=== PATIENT | female | born 1970 | race Caucasian/White ===

== ENCOUNTER → 2016-11-11 | Outpatient (CLI) | payer OTHER ==
[2014-05-23 21:35] VITALS: BP 121/68
--- NOTE | 2016-11-11 15:59 | KCIC ---
PROCEDURE Pelvic and transvaginal ultrasound HISTORY Left pelvic pain COMPARISON None FINDINGS Multiple transabdominal sonographic images of the pelvis are submitted. Pelvic structures are not well visualized. Transvaginal ultrasound: Multiple transvaginal sonographic images of the pelvis are submitted. Uterus measured 9 x 5.3 x 5.7 centimeters. Endometrium measured 0.3 centimeters. Right ovary measured 2.4 x 1.3 x 1.9 centimeters. Left ovary measured 2.2 x 1.6 x 2.1 centimeters. There is normal low resistance vascularity of the ovaries bilaterally. No significant free fluid is demonstrated. There is a somewhat heterogeneous mass of the uterus on the left near the fundus up to 3 x 2.2 x 1.7 centimeters, centered in myometrium although extent near the serosal surface. There is another mass posteriorly in the myometrium of the uterus up to 2.1 x 1.9 x 1.9 centimeters. IMPRESSION 1. There are 2 uterine masses, likely fibroids. 2. No other abnormality is demonstrated. Electronically signed by: Maury Sears MD (Nov 11, 2016 15:57:32)
== END | disposition home or self-care (01) ==
LOC: KCIC US 14:15
PROVIDERS: ATTEND Family Medicine
DX: N85.9 Noninflammatory disorder of uterus, unspecified (principal)
CPT/HCPCS: 76830; 76856

== ENCOUNTER → 2018-08-21 | Outpatient (CLI) | payer OTHER ==
[2014-05-23 21:35] VITALS: BP 121/68
--- NOTE | 2018-08-21 12:06 | KCIC ---
Bilateral digital screening mammograms: Reason for examination: Routine screening. Comparison is made to previous studies dated 07/14/2015 and 12/04/2014. Interpretation was made with the benefit of CAD. The skin and nipples show no abnormalities. No abnormal axillary lymph nodes are seen. The breast parenchyma is extremely dense. (Breast density: Category D.) There are no dominant masses, suspicious calcifications or architectural distortion. A few scattered punctate calcifications are seen. Impression: No evidence of malignancy. Extremely dense parenchyma and ultrasound should be considered for follow-up of the solid nodule seen on previous ultrasound examination. Your patient's mammogram demonstrates that she has dense breast tissue (breast density category C or D), which could hide abnormalities, and if she has other risk factors for breast cancer that have been identified, she might benefit from supplemental screening tests that may be suggested by you as her ordering physician. Dense breast tissue, in and of itself, is a relatively common condition. Therefore, this information is not provided to cause undue concern, but rather to raise your awareness and to promote discussion with your patient regarding the presence of other risk factors, in addition to dense breast tissue. Your patient's mammography results will be sent to her. BI-RAD Category 0: Incomplete. Needs additional imaging evaluation. "Our facility is accredited by the [employer] Mammography Program." This patient's information has been entered into a reminder system for the patient to be notified with the results of her examination and a target date for the next mammogram. Electronically signed by: Sharda Bain MD (08/21/2018 12:02 PM) [facility]
== END | disposition home or self-care (01) ==
LOC: KCIC MAMMO 11:20
PROVIDERS: ATTEND Family Medicine
DX: Z12.31 Encounter for screening mammogram for malignant neoplasm of breast (principal)
CPT/HCPCS: 77067

== ENCOUNTER → 2018-08-31 | Outpatient (CLI) | payer OTHER ==
[2014-05-23 21:35] VITALS: BP 121/68
--- NOTE | 2018-08-31 10:12 | KCIC ---
Left breast diagnostic ultrasound HISTORY: Multiple asymmetric tissue densities seen in the August 21, 2018 mammogram Sonographic examination of the left breast was performed and multiple static images obtained COMPARISON: July 14, 2015 There is a solid mass in the 12:00 left breast 2 cm from the nipple that measures 1.1 x 1.0 x 0.7 cm. It is microlobulated but nonshadowing and has no detectable blood flow. There are numerous cystic appearing lesions scattered throughout the breast which appear similar to the prior study many of these are septated have internal echoes if you have wall thickening versus mural nodules. There are normal-appearing lymph nodes in the left axilla. IMPRESSION: 1. Recommend biopsy of the suspicious mass 12:00 left breast 2 cm from the nipple. 2. Numerous additional lesions in the breast appear benign. These can be followed by six-month follow-up ultrasound. If the tissue specimen comes back positive for cancer the patient should have a right breast ultrasound as well as bilateral breast MRI due to significant breast tissue density on mammogram. These results were given to the patient in person by the international logistics coordinator upon completion of the examination. The patient and the clinical staff will be contacted by the radiology staff for further instructions. BI-RADS Category 5: Highly suggestive of malignancy. Electronically signed by: Ryder Ortega III, MD (08/31/2018 10:08 AM) [id number]
== END | disposition home or self-care (01) ==
LOC: KCIC US 08:48
PROVIDERS: ATTEND Family Medicine
DX: N63.21 Unspecified lump in the left breast, upper outer quadrant (principal)
CPT/HCPCS: 76641

== ENCOUNTER → 2018-10-10 | Outpatient (CLI) | payer OTHER ==
[2014-05-23 21:35] VITALS: BP 121/68
[~2018-10-10] MED LIST: LIDOCAINE 1%/EPI 1:100,000 20 ML VIAL. INJ ONE; LIDOCAINE 2%/EPI 1:100,000 20 ML VIAL. IJ ONE
--- NOTE | 2018-10-11 18:06 | PATHOLOGY ---
[facility] Accession Number: [id number] . 01 Material submitted: . LEFT BREAST MASS, 12:00, 2CMFN . 01 Clinical history: . Left breast mass 1.1 cm . 02 Diagnosis: Breast tissue, left breast mass 12:00 needle biopsies: - Fibroadenoma. (JPM:lisa; 10/11/2018) MBR/10/11/2018 . 02 Comment: There is no evidence of malignancy. (JPM:lisa; 10/10/2018) . 02 Electronically signed: . Suraj Deleon MD, Pathologist NPI- [id number] . 01 Gross description: . Received in formalin labeled "Eleanor Aaron, left breast 12:00 2 cm FN," are multiple needle cores of yellow-jimenez fibrofatty tissue measuring 2.1 x 0.8 x 0.2 cm in aggregate dimensions. The tissue is submitted in its entirety in cassette A1 through A3. The cold ischemic time is 4 minutes. The total formalin fixation time is 14 hours and 32 minutes. (TSD; 10/10/2018) TOB/TOB . 02 Pathologist provided ICD-10: D24.2 . 02 CPT . 751741 Specimen Comment: A courtesy copy of this report has been sent to Specimen Comment: [phone], , . Specimen Comment: Report sent to ,DR BURKETT / DR HCO Specimen Comment: A duplicate report has been generated due to demographic updates. Performed at: [address], [place], [place] [id number] MD Jeffrey Alonzo MD Phone: [phone] Performed at: 02 [facility] [address] [place] [id number] MD Suraj Deleon MD Phone: [phone]
--- NOTE | 2018-10-12 15:02 | RAD ---
Ultrasound-guided left breast biopsy, 10/10/2018: History: Suspicious breast nodule Previous imaging demonstrated a solid suspicious nodule at approximately the 12:00 location in the left breast. Under local anesthesia, aseptic conditions and sonographic guidance the Invenias biopsy instrument was passed into this nodule via a lateral approach. Multiple 12-gauge vacuum-assisted core samples were obtained. A biopsy marker was then deposited the biopsy site. The biopsy instrument was then removed and hemostasis obtained. Two-view postprocedural digital mammograms were then obtained to document position of the biopsy marker. The patient tolerated the procedure well and left the department in good condition. The subsequent pathology report indicated the presence of a fibroadenoma. This is considered to be a concordant finding.
== END | disposition home or self-care (01) ==
LOC: US 08:10
PROVIDERS: ATTEND Surgery
DX: D24.2 Benign neoplasm of left breast (principal); Z88.6 Allergy status to analgesic agent
CPT/HCPCS: 19083; 77065; C1713; 19085; 76942; 88305

== ENCOUNTER → 2019-07-24 | Outpatient (CLI) | payer OTHER ==
[2014-05-23 21:35] VITALS: BP 121/68
--- NOTE | 2019-07-24 10:12 | KCIC ---
MRI Lumbar Spine without contrast History: Lumbar degenerative disc disease, chronic low back pain with worsening right leg pain Technique: Multiplanar, multi sequential noncontrast MR imaging was performed of the lumbar spine. Comparison: March 09, 2016 Findings: Lumbar vertebral body stature is unchanged, again superior endplate concavity of L1. AP alignment is within normal limits. Minimal edema of the left inferior L4 endplate is likely reactive/degenerative in etiology. There is again mild disc desiccation L2-3 and L5-S1. There are posterior annular tears at L2-3, L4-5, and L5-S1. Conus terminates at L1-2. It is difficult to confirm integrity of the right L5 pars interarticularis on this exam. There are T2 hyperintense foci of the bilateral kidneys, not fully evaluated although statistically most likely cysts. There is T2 hyperintense lesion of the left pelvis probably adnexal cyst about 2.1 cm. T12-L1: Spinal canal and neural foramina are adequate. L1-L2: Spinal canal and neural foramina are adequate. L2-L3: There is again negligible posterior bulge. There is minimal facet degenerative change. Spinal canal and neural foramina are adequate. L3-L4: There is mild buckling of the ligamentum flavum and facet degenerative change. Neural foramina and spinal canal are adequate. L4-L5: There is mild facet degenerative change. Neural foramina and spinal canal are adequate. L5-S1: There is mild facet degenerative change contributing to mild posterior narrowing of the right neural foramen. Spinal canal and left neural foramen are overall adequate. Impression: 1. There is no significant lumbar spinal stenosis or neural foramina compromise, mild posterior narrowing of the right L5-S1 neural foramen by facet. There is again mild disc desiccation L2-3 and L5-S1. There is again old superior endplate concavity of L1. It is difficult to confirm integrity of the right L5 pars interarticularis on this exam. 2. T2 hyperintense foci of the bilateral kidneys are statistically most likely cysts. There is also probable cyst of the left adnexa. Electronically signed by: Hector Sears MD (07/24/2019 10:09 AM) [facility]
== END | disposition home or self-care (01) ==
LOC: KCIC MRI 08:34
PROVIDERS: ATTEND Family Medicine
DX: M48.07 Spinal stenosis, lumbosacral region (principal); M47.817 Spondylosis without myelopathy or radiculopathy, lumbosacral region; G89.29 Other chronic pain; M51.36 Other intervertebral disc degeneration, lumbar region
CPT/HCPCS: 72148

== ENCOUNTER 2021-07-11 10:23 | Emergency (ER) | payer OTHER, BC ==
[~2021-07-11] VITALS: Ht 162.6 cm; Wt 63.0 kg
[2021-07-11 10:48] VITALS: BP 146/110
--- NOTE | 2021-07-11 10:56 | PHYS DOC ---
Past Medical History Past Medical History: Hyperthyroid Past Surgical History: No Surgical History Additional Past Surgical Histo: Laparoscopy for ovarian cysts, cuff sx Smoking Status: Current Every Day Smoker Alcohol Use: None Drug Use: None General Adult EDM: Chief Complaint: UPPER EXTREMITY PAIN HPI: HPI: Patient is a 51 year old female presents with left elbow pain. Patient states the end of May she was at work, when she hit her elbow on a metal container. Patient was seen by her PCP, Dr. Irizarry at that time. Patient states that she had fluid drained from her elbow. Denies having any imaging at that time. Patient reports continued pain which is worse with movement. Patient has full range of motion and sensation intact. Patient reports she has been taking ibuprofen with little relief. Rating pain 7/10 with movement. History of hypothyroidism, depression. Review of Systems: Review of Systems: ROS At least 10 ROS systems have been reviewed and are negative except as documented in the HPI. General: Negative except as outlined in HPI above. Skin: Negative except as outlined in HPI above. HEENT: Negative except as outlined in HPI above. Neck: Negative except as outlined in HPI above. Respiratory: Negative except as outlined in HPI above.. Cardiovascular: Negative except as outlined in HPI above. Abdomen: Negative except as outlined in HPI above. : Negative except as outlined in HPI above. Back/MSK: Negative except as outlined in HPI above. Neuro: Negative except as outlined in HPI above. Psych: Negative except as outlined in HPI above. Heart Score: C/O Chest Pain: No Risk Factors: Risk Factors: DM, Current or recent (<one month) smoker, HTN, HLP, family history of CAD, obesity. Risk Scores: Score 0 - 3: 2.5% MACE over next 6 weeks - Discharge Home Score 4 - 6: 20.3% MACE over next 6 weeks - Admit for Clinical Observation Score 7 - 10: 72.7% MACE over next 6 weeks - Early Invasive Strategies Current Medications: Current Medications Medications (Trade) Dose Ordered Sig/Debora Start Time Stop Time Status Last Admin Dose Admin Ibuprofen (Motrin) 600 mg 1X ONCE 07/11/21 11:00 07/11/21 11:01 UNV Allergies: Allergies: Allergies Coded Allergies Type Severity Reaction Last Updated Verified aspirin Allergy Intermediate nervousness 10/10/18 Yes Physical Exam: PE: Constitutional: Well developed, well nourished, no acute distress, non-toxic appearance. [] HENT: Normocephalic, atraumatic, bilateral external ears normal, oropharynx moist, no oral exudates, nose normal. [] Eyes: PERRLA, EOMI, conjunctiva normal, no discharge. [] Neck: Normal range of motion, no tenderness, supple, no stridor. [] Cardiovascular:Heart rate regular rhythm, no murmur [] Lungs & Thorax: Bilateral breath sounds clear to auscultation [] Abdomen: Bowel sounds normal, soft, no tenderness, no masses, no pulsatile masses. [] Skin: Warm, dry, no erythema, no rash. [] Back: No tenderness, no CVA tenderness. [] Extremities: Left elbow tenderness, ROM intact Neurologic: Alert and oriented X 3, normal motor function, normal sensory function, no focal deficits noted. [] Psychologic: Affect normal, judgement normal, mood normal. [] EKG: EKG: [] Radiology/Procedures: Radiology/Procedures: [] XR ELBOW COMPLETE_LEFT 3+VIEWS dated 07/11/2021 10:57 AM. History: Reason: hit on metal container X 3 weeks, pain / Spl. Instructions: / History: Comparison: None. Findings: There is no fracture or dislocation. The bone density is normal. No abnormal periosteal reaction is seen. Joint spaces are maintained. Impression: 1. No acute bony abnormality evident. Electronically signed by: Ashvin Zuniga Jr., MD (07/11/2021 11:06 AM) [id number] Course & Med Decision Making: Course & Med Decision Making Pertinent Labs and Imaging studies reviewed. (See chart for details) [] 51-year-old female presents with left elbow pain. Patient injured elbow at the end of May by hitting on a metal container at work. Pain treated in the ED. X-ray of elbow was unremarkable. Discussed results with patient. Advised patient to follow-up with her PCP on Tuesday. Ibuprofen and Tylenol for pain. Educated on rice. Dragon Disclaimer: Tae Disclaimer: This electronic medical record was generated, in whole or in part, using a voice recognition dictation system. Departure Departure Impression: Primary Impression: Elbow pain, left Disposition: HOME / SELF CARE / HOMELESS Condition: STABLE Referrals: CAN IRIZARRY MD (PCP) Patient Instructions: Elbow Contusion, [id number] Additional Instructions: You were seen in the emergency room for left elbow pain after injuring at work. X-ray of left elbow is unremarkable. You can use ice to the area, elevate. Please follow-up with your PCP in the next few days for further management. Ibuprofen and Tylenol at home for discomfort. Return to the emergency room with worsening symptoms or concerns. EMERGENCY DEPARTMENT GENERAL DISCHARGE INSTRUCTIONS Thank you for coming to [facility] Emergency Department (ED) today and trusting us with you care. We trust that you had a positive experience in our Emergency Department. If you wish to speak to the department management, you may call the Director at [phone]. YOUR FOLLOW UP INSTRUCTIONS ARE FOLLOWS: 1. Do you have a private Doctor? If you do not have a private doctor, please ask for a resource list of physicians or clinics that may be able to assist you with follow up care. 2. The Emergency Physicain has interpreted your x-rays. The X-Ray specialist will also review them. If there is a change in the findings, you will be notified in 48 hours when at all possible. 3. A lab test or culture has been done, your results will be reviewed and you will be notified if you need a change in treatment. ADDITIONAL INSTRUCTIONS AND INFORMATION: 1. Your care today has been supervised by a physician who is specially trained in emergency care. Many problems require more than one evaluation for a complete diagnosis and treatment. We recommend that you schedule your follow up appointment as recommended to ensure complete treatment of you illness or injury. If you are unable to obtain follow up care and continue to have a problem, or if your condition worsens, we recommend that you return to the ED. 2. We are not able to safely determine your condition over the phone nor are we able to give sound medical advice over the phone. For these safety reasons, if you call for medical advice we will ask you to come to the ED for further evaluation. 3. If you have any questions regarding these discharge instructions please call the ED at [phone]. SAFETY INFORMATION: In the interest of safety, wellness, and injury prevention; we encourage you to wear your sealbelt, if you smoke; quite smoking, and we encourage family to use a protective helmet for bicycling and other sporting events that present an increased risk for head injury. IF YOUR SYMPTOMS WORSEN OR NEW SYMPTOMS DEVELOP, OR YOU HAVE CONCERNS ABOUT YOUR CONDITION; OR IF YOUR CONDITION WORSENS WHILE YOU ARE WAITING FOR YOUR FOLLOW UP APPOINTMENT; EITHER CONTACT YOUR PRIMARY CARE DOCTOR, THE PHYSICIAN WHOSE NAME AND NUMBER YOU WERE GIVEN, OR RETURN TO THE ED IMMEDIATELY. Scripts No Active Prescriptions or Reported Meds SKY TORRES APRN Jul 11, 2021 10:56
[2021-07-11] MEDS ORDERED: IBUPROFEN 200 MG TABLET. PO ONE (11:00)
--- NOTE | 2021-07-11 11:09 | RAD ---
XR ELBOW COMPLETE_LEFT 3+VIEWS dated 07/11/2021 10:57 AM. History: Reason: hit on metal container X 3 weeks, pain / Spl. Instructions: / History: Comparison: None. Findings: There is no fracture or dislocation. The bone density is normal. No abnormal periosteal reaction is s een. Joint spaces are maintained. Impression: 1. No acute bony abnormality evident. Electronically signed by: Ashvin Zuniga Jr., MD (07/11/2021 11:06 AM) [id number]
== END 2021-07-11 11:41 | disposition home or self-care (01) ==
LOC: ER 10:23
DX: M25.522 Pain in left elbow (principal); E03.9 Hypothyroidism, unspecified; F17.200 Nicotine dependence, unspecified, uncomplicated; Z88.6 Allergy status to analgesic agent
CPT/HCPCS: 73080; 99283